=== PATIENT | female | born 1955 | race Caucasian/White ===

== ENCOUNTER 2023-03-27 14:25 | Emergency (ER) | payer MEDICARE, SELFPAY ==
--- NOTE | ~2023-03-27 | XR_ITS ---
EXAMINATION: XR foot RT min 3V DATE: 03/27/2023 15:28 INDICATION: Right forefoot trauma one week prior. TECHNIQUE: Dorsoplantar, two oblique and lateral views of the right foot were obtained. COMPARISON: None. FINDINGS: Alignment is normal. No fracture. 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 There i s mild soft tissue swelling about the right ankle and hindfoot and over the dorsum of the forefoot. IMPRESSION: 1. No acute osseous abnormality. Reviewed, dictated and finalized at location A. [employer]
[2023-03-27 14:43] VITALS: BP 123/96; PULSE 81; RESP 16; TEMP 36.7; O2SAT 98
--- NOTE | 2023-03-27 15:13 | ED.LOWEXIN ---
HPI - Extremity Injury (Lower) General Chief Complaint: Extremity Injury, Lower Stated Complaint: right foot injury Time Seen by Provider: 03/27/23 15:13 Source: patient Mode of arrival: ambulatory Limitations: no limitations History of Present Illness HPI Narrative: 68-year-old female presents with complaint of pain and swelling to right foot. Reports approximately 1 week ago she was walking 3 room and hit right foot hard against a table. Had a small abrasion to right foot. Reports over the past several days has increased swelling and pain. Concern for fracture or infection. Ambulatory with slight limp. Patient visiting here from out of town. All systems reviewed and negative except as noted above. Related Data Home Medications Medication Instructions Recorded Confirmed amlodipine 5 mg tablet 5 mg PO DAILY 03/27/23 03/27/23 budesonide-formoterol HFA 160 2 puff inhalation BID 03/27/23 03/27/23 mcg-4.5 mcg/actuation aerosol inhaler (Symbicort) citalopram 10 mg tablet 10 mg PO DAILY 03/27/23 03/27/23 ergocalciferol (vitamin D2) 1,250 1,250 mcg PO WEEKLY 03/27/23 03/27/23 mcg (50,000 unit) capsule (Vitamin D2) hydrochlorothiazide 12.5 mg capsule 12.5 mg PO HS 03/27/23 03/27/23 losartan 50 mg tablet 100 mg PO DAILY 03/27/23 03/27/23 pazopanib 200 mg tablet 600 mg PO DAILY 03/27/23 03/27/23 Allergies Allergy/AdvReac Type Severity Reaction Status Date / Time azithromycin [From Zithromax] Allergy Hives Verified 03/27/23 14:49 Sulfa (Sulfonamide Allergy Hives Verified 03/27/23 14:49 Antibiotics) Review of Systems Review of Systems: CONSTITUTIONAL: Denies fever, chills, or sweats. EYES: Denies visual changes, redness, or discharge. ENT: Denies rhinorrhea, congestion, sore throat, or otalgia. CARDIOVASCULAR: Denies chest pain, palpitations, or edema. RESPIRATORY: Denies cough or dyspnea. GASTROINTESTINAL: Denies abdominal pain, nausea, vomiting, or diarrhea. GENITOURINARY: Denies dysuria or hematuria. SKIN: Denies rash or itching. MUSCULOSKELETAL: Denies back pain, joint pain, or myalgia. Reports pain and swelling to right foot. NEUROLOGIC: Denies headache, numbness, or weakness. PSYCHIATRIC: Denies anxiety or depression. All other systems reviewed are negative, except as documented in HPI. PMFSH Comments At time of signature, agree with nursing past medical, surgical, social and family history. There is no relevant family history pertinent to the presenting complaint. Exam Narrative: GENERAL: This is a well-nourished, well-developed patient, in no apparent distress. HEAD: normocephalic, atraumatic. EYES: PERRL. Sclera clear/white. Vision is grossly intact. EARS: External ears normal NOSE: External nose normal NECK: Neck supple, non-tender without lymphadenopathy, masses or thyromegaly. CARDIOVASCULAR: Regular rate and rhythm without murmurs, gallops, or rubs. RESPIRATORY: Clear to auscultation. Breath sounds equal bilaterally. No wheezes, rales, or rhonchi. SKIN: warm, Dry, intact with no suspicious lesions or rash, good texture and turgor. NEURO: awake, alert, and oriented to person, place and time. There were no obvious focal neurologic abnormalities. EXTREMITIES: No joint tenderness, effusion. Swelling to R foot with bruising. scabbed abrasion to dorsal aspect. tender on palpatio of 3rd to 5th metatarsal wtih erythema. Course Course Level of Care: Express Care Visit Vital Signs Vital signs: Vital Signs Temperature 36.7 C 03/27/23 14:43 Pulse Rate 81 03/27/23 14:43 Respiratory Rate 16 03/27/23 14:43 Blood Pressure 123/96 H 03/27/23 14:43 Pulse Oximetry 98 03/27/23 14:43 Oxygen Delivery Room Air 03/27/23 14:43 Temperature 36.7 C 03/27/23 14:43 Pulse Rate 81 03/27/23 14:43 Respiratory Rate 16 03/27/23 14:43 Blood Pressure 123/96 H 03/27/23 14:43 Pulse Oximetry 98 03/27/23 14:43 Oxygen Delivery Room Air 03/27/23 14:43
== END 2023-03-27 16:00 | disposition home or self-care (01) ==
PROVIDERS: Emergency Provider Nurse Practitioner Family
DX: L03.115 Cellulitis of right lower limb (principal); E78.00 Pure hypercholesterolemia, unspecified; I10 Essential (primary) hypertension; J44.9 Chronic obstructive pulmonary disease, unspecified; Z85.3 Personal history of malignant neoplasm of breast; Z85.528 Personal history of other malignant neoplasm of kidney; Z85.118 Personal history of other malignant neoplasm of bronchus and lung; Z85.05 Personal history of malignant neoplasm of liver
CPT/HCPCS: 73630; 99213; G0463

== ENCOUNTER 2023-05-01 12:59 | Emergency (ER) | payer MEDICARE, SELFPAY ==
--- NOTE | 2023-05-01 13:03 | ED.SKABFB ---
HPI - Skin/Abscess/Foreign Bdy General Chief complaint: Skin/Abscess/Foreign Body Stated complaint: Rash Time Seen by Provider: 05/01/23 13:03 Source: patient Mode of arrival: ambulatory Limitations: no limitations History of Present Illness HPI narrative: Patient is a 68-year-old female who presents with painful blistering rash to left side of face that started yesterday. Patient reports it started in left eyebrow and now has lesions in left hairline as well. Denies any vision changes or eye pain. Denies history shingles. Related Data Home Medications Medication Instructions Recorded Confirmed amlodipine 5 mg tablet 5 mg PO DAILY 03/27/23 05/01/23 budesonide-formoterol HFA 160 2 puff inhalation BID 03/27/23 05/01/23 mcg-4.5 mcg/actuation aerosol inhaler (Symbicort) citalopram 10 mg tablet 10 mg PO DAILY 03/27/23 05/01/23 ergocalciferol (vitamin D2) 1,250 1,250 mcg PO WEEKLY 03/27/23 05/01/23 mcg (50,000 unit) capsule (Vitamin D2) hydrochlorothiazide 12.5 mg capsule 12.5 mg PO HS 03/27/23 05/01/23 losartan 50 mg tablet 100 mg PO DAILY 03/27/23 05/01/23 pazopanib 200 mg tablet 600 mg PO DAILY 03/27/23 05/01/23 Allergies Allergy/AdvReac Type Severity Reaction Status Date / Time azithromycin [From Zithromax] Allergy Hives Verified 05/01/23 13:20 Sulfa (Sulfonamide Allergy Hives Verified 05/01/23 13:20 Antibiotics) Review of Systems Review of Systems: All systems reviewed & are unremarkable except as noted in HPI and below Constitutional: Constitutional: Denies body ache(s), Denies chills, Denies fatigue, Denies fever(s), Denies headache(s), Denies malaise and Denies weakness Eyes: Eyes: Denies blurry vision, Denies irritation and Denies loss of vision ENT: Denies otalgia, Denies headache(s), Denies nasal discharge, Denies sinus pain and Denies sore throat Cardiovascular: Cardiovascular: Denies chest pain, Denies irregular heart rhythm and Denies dyspnea Respiratory: Respiratory: Denies dyspnea Gastrointestinal: Gastrointestinal: Denies abdominal pain, Denies melena, Denies hematochezia, Denies diarrhea, Denies nausea and Denies vomiting Musculoskeletal: Musculoskeletal: Denies back pain, Denies myalgias and Denies arthralgias Integumentary/Breasts: Skin/Breast: Denies pruritus and Reports rash Neurologic: Denies headache(s), Denies loss of vision and Denies weakness Psychiatric: Psychiatric: Reports no additional psychiatric complaints Endocrine: Endocrine: Denies fatigue PMFSH Comments At time of signature, agree with nursing past medical, surgical, social and family history. There is no relevant family history pertinent to the presenting complaint. Exam Const: General: cooperative, healthy appearing, comfortable, no acute distress and well nourished Nutritional Appearance: well nourished Orientation/consciousness: patient oriented x3 Limitations: no limitations HENMT: Head: normal to inspection, normocephalic and atraumatic Ears: hearing grossly normal bilaterally and external ears normal Face/Nose/Sinus: Normal external nose present, normal facial exam and face symmetric Face and sinus: normal facial exam and face symmetric Mouth: Yes lip normal Eyes: General: appearance normal, both eyes and all related structures Alignment and Position: alignment normal and position normal Periorbital: periorbital findings normal Eyelids: eyelid abnormality left upper eyelid erythema (mild), swelling (mild) and tenderness Conjunctivae: conjunctivae normal Sclera: sclerae normal Cornea: corneas normal and fluorescein used Pupils: Equal, round and reactive pupils present EOM: EOMs intact bilaterally Direct Ophthalmoscopy: no photophobia Neck: Neck: normal visual inspection, full ROM and supple Chest: Chest palpation & inspection: normal inspection of the chest Resp: Effort & Inspection: normal respiratory effort and able to speak in complete sentences Auscultation: clear to auscultation bi
[2023-05-01 13:08] VITALS: BP 155/76; PULSE 87; RESP 16; TEMP 36.8; O2SAT 98
== END 2023-05-01 14:55 | disposition home or self-care (01) ==
PROVIDERS: Emergency Provider Nurse Practitioner Family
DX: B02.9 Zoster without complications (principal); E78.00 Pure hypercholesterolemia, unspecified; I10 Essential (primary) hypertension; F32.A Depression, unspecified; J45.909 Unspecified asthma, uncomplicated; Z85.528 Personal history of other malignant neoplasm of kidney; Z90.5 Acquired absence of kidney; Z85.3 Personal history of malignant neoplasm of breast; Z85.118 Personal history of other malignant neoplasm of bronchus and lung; Z85.05 Personal history of malignant neoplasm of liver; Z92.21 Personal history of antineoplastic chemotherapy
CPT/HCPCS: 99213; A9270; G0463